=== PATIENT | female | born 1950 | race Caucasian/White ===

== ENCOUNTER 2019-01-19 06:00 | Outpatient (RCR) | payer MEDICARE, BC, SELFPAY | END 2019-02-18 00:01 | LOC: MPT 06:00 | PROVIDERS: Visit Provider Psychiatry & Neurology Neurology | DX: R35.0 Frequency of micturition (principal) | CPT/HCPCS: 97110; 97530 ×2 ==

== ENCOUNTER 2020-03-02 06:00 | Outpatient (RCR) | payer MEDICARE, SELFPAY | END 2020-03-21 23:59 | disposition home or self-care (01) | LOC: MPT 06:00 | PROVIDERS: Referring Provider Internal Medicine; Visit Provider Internal Medicine | DX: M22.2X1 Patellofemoral disorders, right knee (principal); M22.2X2 Patellofemoral disorders, left knee | CPT/HCPCS: 97110; 97112; 97161; G0283 ==

== ENCOUNTER 2020-03-22 06:00 | Outpatient (RCR) | payer MEDICARE, SELFPAY | END 2020-04-18 23:59 | disposition home or self-care (01) | LOC: MPT 06:00 | PROVIDERS: Referring Provider Internal Medicine; Visit Provider Internal Medicine | DX: M22.2X1 Patellofemoral disorders, right knee (principal); M22.2X2 Patellofemoral disorders, left knee | CPT/HCPCS: 97110; 97116 ==

== ENCOUNTER 2020-04-07 03:33 | Emergency (ER) | payer MEDICARE, BC, SELFPAY ==
[2020-04-07] VITALS (7 sets, daily range): BP systolic 138–205; BP diastolic 74–112; PULSE 74–94; RESP 16–22; TEMP 36.7; O2SAT 89–98; BMI 33.3
--- NOTE | 2020-04-07 03:47 | ED_ITS ---
HPI - Back Pain/Injury General: Chief Complaint: Back Pain/Injury Stated Complaint: abd/back pain Source: patient Mode of arrival: ambulatory Limitations: no limitations History of Present Illness: HPI Narrative: 70-year-old female states that she has been having left lower abdominal pain on back pain for last 3 days. States is been very sharp in nature and rates it a 6 out of 10. She denies any dysuria. Denies any fevers. Denies any nausea or vomiting. Patient denies any worsening or improving factors. Associated symptoms: Reports abdominal pain; Deny chills, dysuria or fever(s) Review of Systems Const: Denies: fever(s), chills, body aches or change in appetite Eyes: Denies: blurry vision or eye discomfort ENMT: Denies: throat pain or dental pain Card: Denies: chest pain Resp: Denies: dyspnea GI: Reports: abdominal pain : Denies: dysuria Musc: Denies: neck pain or back pain Skin/Breast: Denies: rash Neuro: Denies: headache(s) Psych: Denies: depression Jae/Lymph: Denies: easy bruising All/Imm: Denies: urticaria Physical Exam Const: COMMON NORMALS: no acute distress, patient oriented x3 and healthy appearing HENMT: COMMON NORMALS: normocephalic and atraumatic HEAD & SCALP: normocephalic and atraumatic Eye: COMMON NORMALS: Equal, round and reactive pupils present and EOMs intact bilaterally PUPIL: Yes Equal, round and reactive pupils present Neck/C-Spine: COMMON NORMALS: full ROM and supple Chest: COMMONS NORMALS: normal inspection of the chest and normal palpation of entire chest wall Resp: COMMON NORMALS: normal respiratory effort, No retractions, No use of accessory muscles and clear to auscultation bilaterally AUSCULTATION: clear to auscultation bilaterally Cardio: COMMON NORMALS: regular rate, regular rhythm and No murmurs present (Cardio) RATE: regular rate RHYTHM: regular rhythm GI: COMMON NORMALS: Normal to inspection, nondistended, normoactive bowel sounds present, Soft to palpation and no masses PALPATION: Yes Soft to palpation and Yes Tenderness to palpation present (GI) Details: LLQ Extremity: COMMON NORMALS: normal to inspection and full ROM Neuro: COMMON NORMALS: patient oriented x3, moves all extremities and no focal motor deficits Psych: COMMON NORMALS: mental status grossly normal, Normal thought process present and cooperative THOUGHT PROCESS: Normal thought process present Skin: COMMON NORMALS: no rashes or lesions noted and no wounds GENERAL SKIN EXAM: no rashes or lesions noted Course Vital Signs: Vital signs: Vital Signs Temperature 98.1 F 04/07/20 03:39 Pulse Rate 84 04/07/20 05:08 Respiratory Rate 22 H 04/07/20 05:08 Blood Pressure 205/89 04/07/20 05:08 Pulse Oximetry 90 04/07/20 05:08 MDM - Back Pain/Injury MDM Narrative: Medical decision making narrative: Sidra presents here with abdominal pain over left lower quadrant. She does have a palpable area of pain. No abscess formation. CT shows a possible cellulitis. Patient's blood work here is normal. We will start antibiotics she is to follow-up with PCP in 3 to 5 days return to ER if worsening. She understands agrees to plan. Lab Data: Labs: Lab Results 04/07/20 04/07/20 04/07/20 Range/Units 03:56 03:56 03:56 WBC 6.4 (4.0-10.0) 10^3/ uL RBC 4.06 L (4.1-5.3) 10^6/u L Hgb 11.8 (11.5-15.3) g/dL Hct 36.0 L (37.0-47.0) % MCV 88.7 (81-99) fL MCH 29.1 (28.0-34.0) pg MCHC 32.8 (30.0-36.0) g/dL RDW 12.1 (12.1-15.1) % Plt Count 167 (130-400) 10^3/c mm MPV 10.1 (7.4-10.4) fL Neut % (Auto) 71.7 % Lymph % (Auto) 16.5 % [place] % (Auto) 11.0 % Eos % (Auto) 0.3 % Baso % (Auto) 0.3 % Neut # (Auto) 4.57 (1.8-7.7) 10^3/u L Lymph # (Auto) 1.1 (0.8-4.8) 10^3/u L [place] # (Auto) 0.7 (0.2-0.9) 10^3/u L Eos # (Auto) 0.0 (0.0-0.8) 10^3/u L Baso # (Auto) 0.0 (0.0-0.1) 10^3/u L Nucleated RBC % (a uto) 0 % Nucleated RBCs # 0.0 /100WBC Sodium 129 L (136-145) mmol/L Potassium 3.8 (3.5-5.1) mmol/L Chloride 92 L (98-107) mmol/L Carbon Dioxide 22 (22-29) mmol/L Anion Gap 18.8 (5-19) BUN 15 (8-23) mg/dL Creatinine 1.0 H (0.5-0.9) mg/dL GFR Calculation 54.8 L (90-130) mL/min Glucose 184 H (65-115) mg/dL Calculated Osmolal ity 274 L (285-295) mOsm/k g Calcium 8.9 (8.5-10.5) mg/dL Total Bilirubin 0.3 (0.15-1.2) mg/dL AST 39 H (0-32) U/L ALT 23 (0-33) U/L Alkaline Phosphata se 49 (35-105) IU/L Total Protein 7.6 (6.6-8.7) g/dL Albumin 4.3 (3.5-5.2) g/dL Globulin 3.3 (1.3-4.6) g/dL Lipase 19 (13-60) U/L Urine Color Yellow (Yellow) Urine Appearance Clear (CLEAR) Urine pH 5 (5-7) Ur Specific Gravit y 1.015 (1.005-1.030) Urine Protein Trace (Negative) Urine Glucose (UA) 2+ (Normal) Urine Ketones 1+ H (Negative) Urine Blood Neg (Negative) Urine Nitrate Negative (Negative) Urine Bilirubin Neg (Negative) Urine Urobilinogen Norm (Negative) mg/dL Ur Leukocyte Pam ase Negative (Negative) Urine RBC None (0-2) /hpf Urine WBC 5-10 H (0-5) /hpf Ur Squamous Epith Cells 5-10 H (0-5) /hpf Amorphous Sediment Not Reportable Urine Bacteria Trace (NONE) /hpf Imaging Data^: CT Abd/Pel: Attestation: I personally reviewed and interpreted this imaging study as follows: Radiologist's impression: [facility] [address] [place] [address] CT Scan Report Signed Patient: Sidra Ortega Unit #: [id number] : 1950 Age/Sex: 70 / F ADM Date: 04/07/20 Loc: ER Room/Bed: Attending Dr: Ordering Provider/Ordering MD: Katherine Sanon MD Date of Service: 04/07/20 Procedure(s): CT abdomen pelvis w con* [id number] Accession Number(s): [id number] Report Number: [id number] PROCEDURE INFORMATION: Exam: CT Abdomen And Pelvis With Contrast Exam date and time: 04/07/2020 3:56 AM Age: 70 years old Clinical indication: Abdominal pain; Localized; Left lower quadrant (llq); Prior surgery; Surgery type: Appy; Patient HX: Llq and back pain x 3 days; Additional info: Abd pain TECHNIQUE: Imaging protocol: Computed tomography of the abdomen and pelvis with contrast. Radiation optimization: All CT scans at this facility use at least one of these dose optimization techniques: automated exposure control; mA and/or kV adjustment per patient size (includes targeted exams where dose is matched to clinical indication); or iterative reconstruction. Contrast material: VISI 320; Contrast volume: 95 ml; Contrast route: INTRAVENOUS (IV); COMPARISON: No relevant prior studies available. RADIATION DOSE METRICS: Total DLP (mGy-cm): 1180.37 FINDINGS: Liver: Mild fatty liver. Gallbladder and bile ducts: Nonspecific gallbladder distention. No calcified stones. Pancreas: No ductal dilation. Spleen: No splenomegaly. Adrenal glands: Normal. No mass. Kidneys and ureters: No hydronephrosis. Stomach and bowel: No obstruction. No mucosal thickening. Appendix: The appendix is not identified. No focal inflammation in the right lower quadrant. Intraperitoneal space: No free air. No significant fluid collection. Vasculature: Atherosclerotic changes of the aorta. No aneurysm. Lymph nodes: No enlarged lymph nodes. Urinary bladder: Unremarkable as visualized. Reproductive: Unremarkable as visualized. Bones/joints: Unremarkable. No acute fracture. Soft tissues: There is an area of soft tissue thickening and edema in the is subcutaneous/superficial soft tissues of the left abdomen measuring 5.2 x1 cm. Findings may represent a focal area of cellulitis/phlegmon. No focal fluid collection. CT/CT abdomen pelvis w con* [id number] IMPRESSION: 1. There is an area of soft tissue thickening and edema in the is subcutaneous/superficial soft tissues of the left abdomen measuring 5.2 x 1 cm. Findings may represent a focal area of cellulitis/phlegmon. No focal fluid collection. 2. Nonspecific gallbladder distention. No calcified stones. Discharge Plan Discharge Patient Disposition: Home Clinical Impression: Cellulitis Qualifiers: Site of cellulitis: unspecified site Qualified Code(s): L03.90 - Cellulitis, unspecified Abdominal pain Qualifiers: Abdominal location: unspecified location Qualified Code(s): R10.9 - Unspecified abdominal pain Condition: Stable Prescriptions: New Keflex 500 mg capsule 500 mg PO Q6H 7 Days Qty: 28 RF: 0 ondansetron 4 mg tablet,disintegrating 4 mg PO Q6H PRN (Reason: nausea and vomiting) Qty: 14 RF: 0 Discharge Orders: Discharge ED (Routine); Ordered 04/07/20 Ordered By: Katherine Sanon Referrals: Tari Camara MD [Primary Care Provider] - 1-3 days Discharge Diet: Advance as tolerated Discharge Activity: Resume usual activity Patient Instructions: Abdominal Pain (ED), Opioid Safety Coding Level of Care Code ED 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
[2020-04-07] MEDS: morphine 4 mg/mL SDV 1 mL IVP (03:54)
[2020-04-07] MEDS: sodium chloride 0.9% 1,000 ML 999 ML IV (03:55)
[2020-04-07] MEDS: ondansetron 2 mg/ML SDV 2 mL 4 MG IVP (03:55)
[2020-04-07 04:05] LABS: Basophils % 0.3 %; Eosinophils % 0.3 %; Hemoglobin 11.8 g/dL (11.5-15.3); Lymphocytes # 1.1 10^3/uL (0.8-4.8); Lymphocytes % 16.5 %; Mean Corpuscular HGB Conc 32.8 g/dL (30.0-36.0); Mean Corpuscular Hemoglobin 29.1 pg (28.0-34.0); Mean Corpuscular Volume 88.7 fL (81-99); Mean Platelet Volume 10.1 fL (7.4-10.4); Monocytes # 0.7 10^3/uL (0.2-0.9); Neutrophils # 4.57 10^3/uL (1.8-7.7); Neutrophils % 71.7 %; Nucleated Red Blood Cells % 0 %; Platelet Count 167 10^3/cmm (130-400); Red Blood Count 4.06 10^6/uL (4.1-5.3); Red Cell Distribution Width 12.1 % (12.1-15.1); White Blood Count 6.4 10^3/uL (4.0-10.0)
--- NOTE | 2020-04-07 04:19 | PC.NURSE ---
after morphine adm, pt o2 sat level maintaining 88-90% on r/a. pt coached on breathing, Dr notified. vo for monitoring of sats
[2020-04-07 04:25] LABS: Glucose Urine UA 2+ (Normal); Protein Urine Trace (Negative); Specific Gravity, Urine 1.015 (1.005-1.030); Urine Appearance Clear (CLEAR); Urine Color Yellow (Yellow); pH Urine 5 (5-7)
[2020-04-07 04:26] LABS: Add Urine Culture? No; Add Urine Microscopic? YES; Bacteria Urine TRACE /hpf; Bilirubin Urine Neg (Negative); Blood Urine Neg (Negative); Ketones Urine 1+ (Negative); Leukocyte Esterase Urine Negative (Negative); Nitrate Urine Negative (Negative); Urobilinogen Urine Norm (Negative)
[2020-04-07 04:28] LABS: Alanine Aminotransferase 23 U/L (0-33); Albumin Level 4.3 g/dL (3.5-5.2); Alkaline Phosphatase 49 IU/L (35-105); Anion Gap 18.8 (5-19); Aspartate Amino Transferase 39 U/L (0-32); Blood Urea Nitrogen 15 mg/dL (8-23); Calcium 8.9 mg/dL (8.5-10.5); Carbon Dioxide 22 mmol/L (22-29); Chloride 92 mmol/L (98-107); Globulin 3.3 g/dL (1.3-4.6); Glomerular Filtration Rate 54.8 mL/min (90-130); Glucose 184 mg/dL (65-115); Lipase 19 U/L (13-60); Osmolality Calculated 274 mOsm/kg (285-295); Potassium 3.8 mmol/L (3.5-5.1); Sodium 129 mmol/L (136-145); Total Bilirubin 0.3 mg/dL (0.15-1.2); Total Protein 7.6 g/dL (6.6-8.7)
[2020-04-07] MEDS: iodixanol 320 mg/mL 100mL Btl IV (04:39)
[2020-04-07] MEDS: HYDROmorphone 1 mg/mL INJ 1 mL 0.5 MG IVP (05:05)
--- NOTE | 2020-04-07 05:09 | PC.NURSE ---
during rounding, pt states pain is returning 6/10. notified
== END 2020-04-07 05:40 | disposition home or self-care (01) ==
PROVIDERS: Emergency Provider Emergency Medicine; PCP Family Medicine
DX: R10.9 Unspecified abdominal pain (principal); L03.90 Cellulitis, unspecified
CPT/HCPCS: 74177; 80053; 81001; 83690; 85025; 96361; 96374; 96375; 99283; J1170; J2270; J2405; J7030; Q9967